=== PATIENT | male | born 1930 | race Caucasian/White ===

== ENCOUNTER 2018-01-05 11:38 | Inpatient (IN) | payer MEDICARE ==
[2018-01-05 11:59] LABS: #Eosinphils 0.2 thou/uL (0.0-0.7); #Lymphocytes 2.7 thou/uL (1.20-3.40); #Monocytes 1.4 thou/uL (0.11-0.59); #Neutrophils 7.7 thou/uL (1.40-6.50); %Basophils 0.4 % (0.0-1.0); %Eosinophils 1.9 % (0.0-10.0); %Lymphocytes 22.6 % (21.0-51.0); %Monocytes 11.4 % (0.0-10.0); %Neutrophils 63.8 % (42.0-75.0); Hemoglobin 13.3 g/dL (14.0-18.0); Mean Corpuscular HGB CONC 33.1 g/dL (32.0-36.0); Mean Platelet Volume 7.7 fL (7.4-10.4); Platelet Count 242 thou/uL (130-400); Red Blood Cell (RBC) Count 3.82 mill/uL (4.70-6.10); White Blood Cell (WBC) Count 12.1 thou/uL (4.8-10.8)
[2018-01-05 12:07] LABS: PTT 27.2 SEC (22.9-36.1); Prothrombin Time 13.4 SEC (12.0-14.7)
[2018-01-05 12:08] LABS: BHCG - Serum Negative; Pregs Control Background? CLEAR/WHITE (CLR/WHITE); Pregs Control Bar Appear? YES (CONTROL BAR)
[2018-01-05 12:14] LABS: ALT (SGPT) 20 U/L (8-55); AST (SGOT) 15 U/L (5-34); Albumin 3.7 g/dL (3.4-4.8); Alkaline Phosphatase 81 U/L (40-150); Anion Gap 13 mmol/L (10-20); BUN (Urea Nitrogen) 15 mg/dL (8.4-25.7); Bilirubin, Total 0.8 mg/dL (0.2-1.2); Calc. Creatinine Clearance 0 mL/min (70-130); Carbon Dioxide 25 mmol/L (23-31); Chloride 103 mmol/L (98-107); Estimated GFR-MDRD 68; Globulin 2.9 g/dL (2.4-3.5); Glucose 228 mg/dL (83-110); Potassium 4.4 mmol/L (3.5-5.1); Protein, Total 6.6 g/dL (5.8-8.1); Sodium 137 mmol/L (136-145)
[2018-01-05 12:18] LABS: CKMB 1.3 ng/mL (0-6.6)
--- NOTE | 2018-01-05 12:28 | CT ---
CT HEAD NONCONTRAST: INDICATIONS: New onset left facial droop. Stroke activation/alert. FINDINGS: There is mild parenchymal volume loss with compensatory dilatation of the ventricular system. Mild c hronic microvascular ischemic disease is present. There is a focal region of hypoattenuation of the right occipital lobe, which may relate to an area of encephalomalacia from prior infarction. No hemo rrhage, mass effect, or midline shift. Mild paranasal sinus mucosal thickening is incidentally noted. IMPRESSION: 1. No acute intracranial hemorrhage or mass effect. 2. Additional findings are detailed above. Telephone call of findings placed to Joaquim Baron M.D., at 1149 hours on 01/05/2018. CODE CR POS: ANNALEE
[2018-01-05 14:05] LABS: Bilirubin Negative (Negative); Blood, Urine Negative (Negative); Clarity CLEAR (Clear); Glucose, Urine (Dipstick) Negative (Negative); Leukocyte Negative (Negative); Nitrite Negative (Negative); Protein, Urine (Dipstick) Negative (Neg-Trace); Specific Gravity, Urine 1.007 (1.002-1.036); Urobilinogen 0.2 mg/dL (0.2-1.0); pH, Urine 5.5 (5.0-9.0)
[2018-01-05] MEDS ORDERED: Enoxaparin Sodium 80 MG/0.8 ML SYRINGE ONE (15:03)
[2018-01-05] MEDS ORDERED: Acetaminophen 325 MG TAB PO PRN (16:22)
[2018-01-05] MEDS ORDERED: Dextrose 5% in Water 1,000 ML IV PRN (16:22)
[2018-01-05] MEDS ORDERED: HumaLOG 300 UNITS/3 ML VIAL SC PRN (16:22)
[2018-01-05] MEDS ORDERED: Mag-Al 1200 mg/1200 mg/30 ML UDCUP PO PRN (16:22)
[2018-01-05] MEDS ORDERED: Dextrose 50% Abboject 50 ML SYRINGE SLOW IVP PRN (16:22)
[2018-01-05 16:29] VITALS: BMI 26.2
[2018-01-05 17:14] LABS: Troponin I 0.047 ng/mL (< 0.028)
[2018-01-05] MEDS: Insulin NPH/Reg Insulin Hm 300 UNITS/3 ML VIAL SC SCH (19:10)
[2018-01-05] MEDS: Docusate 100 MG CAP PO SCH (19:55)
[2018-01-05] MEDS: Famotidine 20 MG TAB PO SCH (19:57)
[2018-01-05] MEDS ORDERED: Atorvastatin Calcium 40 MG TAB PO SCH (21:00)
--- NOTE | 2018-01-05 21:20 | HP ---
PRIMARY CARE PHYSICIAN: Dr. Joan Vaughan. CHIEF COMPLAINT: Right facial droop. HISTORY OF PRESENT ILLNESS: The history of present illness is taken almost entirely from the patient 's family, who were at the bedside as the patient has advanced dementia and is unable to give a histo ry. Mr. Velasco is an 87-year-old gentleman that has a history of advanced dementia as well as diabet es mellitus. He was in his usual state of health until earlier today around 8:30. His daughter noti elijah that the right side of his face seemed more droopy. The corner of his mouth was turned down and he seemed generally weaker than usual. For this reason, they brought him to the ER for evaluation. In the ER, he was determined to have the facial droop and was also noted to be in atrial flutter with a heart rate in the 70s. He is being admitted for further evaluation and treatment. The patient wa s considered for TPA as well as PITO procedure; however, due to his advanced dementia and the minima l symptoms, he was not felt to be a candidate for either. REVIEW OF SYSTEMS: All systems were reviewed with the patient's daughter and seemed to be negative o ther than having an eye infection recently and generally being a bit weaker and recent incontinence t o urine. No other systems were positive. PAST MEDICAL HISTORY: Significant for diabetes mellitus, dementia, and peripheral vascular disease. PAST SURGICAL HISTORY: He has had a right leg vascular surgery. ALLERGIES: No known drug allergies. SOCIAL HISTORY: He is a former smoker. He quit 30 years ago. There is no alcohol use. He is marri ed, has three children. His by the name of Karen Velasco is his medical power of erisa attorney, his granddaughter is the alternate. He needs help with all activities of daily living. CODE STATUS. They said they had never considered this before and therefore he is a FULL CODE. FAMILY HISTORY: Significant for cancer in his father. Sister had breast cancer. CURRENT MEDICATIONS: Include 70/30 insulin 20 units twice a day. PHYSICAL EXAMINATION: GENERAL: He is alert, but disoriented. VITAL SIGNS: Blood pressure was 159/72, heart rate 57, respiratory rate of 18, and temperature was 9 9.5. HEENT: His pupils are equal, round, and reactive. Extraocular muscles are intact. Sclerae are anic teric. Throat no erythema and exudates. He is edentulous. NECK: There is no adenopathy, no bruits. LUNGS: Clear to auscultation, no wheezing, no rales. CARDIOVASCULAR: Heart rate seems regular. There were no murmurs, clicks or rubs. ABDOMEN: Soft, it is nontender, nondistended. Positive for bowel sounds. No rebound or guarding. EXTREMITIES: There is no edema. He did have some discoloration kind of a reddish bronze discolorati on on the dorsum of his right leg as his pulses are diminished on the right and he has a callus forma tion under the plantar aspect of the fifth proximal metatarsal joint. NEUROLOGIC: He has a right facial droop. His muscle strength appears to be intact. Reflexes were s ymmetric. LABORATORY RESULTS: CT scan of the brain was negative except for some chronic changes. Sodium 137, potassium 4.4, chloride is 103, CO2 is 25, BUN of 15, creatinine 1.04, glucose is 228, bilirubin 0.8. Troponin is 0.040. The white blood cell count 12.1, hemoglobin 13.3, hematocrit is 40.3, platelet count is 242. INR is 1.0. Urinalysis was negative. EKG was atrial fibrillation, heart rate was 76- 78 with 4:1 block. ASSESSMENT AND PLAN: 1. This is a pleasant 87-year-old gentleman, who presents to the emergency room with right facial dr oop, which is persistent now since 8:30 this morning. This likely represents a small stroke, likely as a result of the atrial flutter. The atrial flutter is a newly detected and no previous history of this. He will be admitted to the stroke unit, started on low dose aspirin as well as anticoagulatio n with Lovenox. We will check a lipid panel and likely start him on a statin. His blood pressure is actually within a reasonable range at this time. We will consult Neurology. He generally sees Dr. Jacquelyn Morales on a regular basis with regards to his dementia. 2. For the atrial flutter, we will get an echocardiogram, continue the Lovenox and also consult Card iology for further recommendations. 3. Diabetes mellitus. He has passed his bedside swallow. We will place him on a diabetic diet. Re sume his insulin as well as a sliding scale. Also, he appears to have a diabetic ulcer on the planta r aspect of the right foot and we will get a wound care consult for this.
[2018-01-05 21:27] LABS: Troponin I 0.047 ng/mL (< 0.028)
[2018-01-05] MEDS ORDERED: Enoxaparin Sodium 80 MG/0.8 ML SYRINGE SC SCH (23:59)
[2018-01-06] MEDS: Enoxaparin Sodium 80 MG/0.8 ML SYRINGE SC SCH (04:39)
[2018-01-06 06:05] LABS: Anion Gap 14 mmol/L (10-20); BUN (Urea Nitrogen) 15 mg/dL (8.4-25.7); Calc. Creatinine Clearance 69 mL/min (70-130); Carbon Dioxide 24 mmol/L (23-31); Cardiac Risk 3.1 (Less than 4.5); Chloride 105 mmol/L (98-107); Cholesterol 173 mg/dl (< 200 Desired); Estimated GFR-MDRD 78; Glucose 130 mg/dL (83-110); HDL Cholesterol 55 mg/dL (>60 Neg Risk); LDL Cholesterol, Calculated 108 mg/dL; Potassium 4.4 mmol/L (3.5-5.1); Sodium 139 mmol/L (136-145); Triglycerides 52 mg/dL (Less than 150)
[2018-01-06 06:30] LABS: #Eosinphils 0.1 thou/uL (0.0-0.7); #Lymphocytes 1.9 thou/uL (1.20-3.40); #Monocytes 1.1 thou/uL (0.11-0.59); #Neutrophils 7.6 thou/uL (1.40-6.50); %Basophils 0.1 % (0.0-1.0); %Eosinophils 1.1 % (0.0-10.0); %Monocytes 9.9 % (0.0-10.0); %Neutrophils 70.9 % (42.0-75.0); Hemoglobin 13.4 g/dL (14.0-18.0); Mean Corpuscular HGB CONC 33.7 g/dL (32.0-36.0); Mean Corpuscular Hemoglobin 35.3 pg (27.0-31.0); Mean Platelet Volume 8.1 fL (7.4-10.4); Platelet Count 247 thou/uL (130-400); RBC Distribution Width 13.1 % (11.5-14.5); Red Blood Cell (RBC) Count 3.79 mill/uL (4.70-6.10); White Blood Cell (WBC) Count 10.7 thou/uL (4.8-10.8)
[2018-01-06] MEDS: Aspirin 81 mg Enteric Coated Tablet PO SCH (08:54)
[2018-01-06] MEDS: Docusate 100 MG CAP PO SCH (08:54)
[2018-01-06] MEDS: Famotidine 20 MG TAB PO SCH (08:54)
[2018-01-06] MEDS: Insulin NPH/Reg Insulin Hm 300 UNITS/3 ML VIAL SC SCH ×2 (08:55→18:12)
[2018-01-06] MEDS ORDERED: Prevnar 13-Val Conj/PF 0.5 ML SYRINGE IM ONE (09:00)
[2018-01-06] MEDS ORDERED: Lorazepam 2 MG/ML VIAL SLOW IVP SCH (11:00)
[2018-01-06] MEDS: HumaLOG 300 UNITS/3 ML VIAL SC PRN (11:35)
[2018-01-06] MEDS ORDERED: Labetalol HCl 100 MG/20 ML VIAL SLOW IVP PRN (11:44)
--- NOTE | 2018-01-06 12:05 | PDOC.PN ---
- Subjective Encounter Start Date: 01/06/18 Encounter Start Time: 12:04 Mr. Velasco was seen today in follow-up of acute CVA. He is sitting up in a chair eating. He continues to have a right facial droop, but it is less pronounced today than yesterday. - Objective Resuscitation Status: Resuscitation Status FULL:Full Resuscitation MAR Reviewed: Yes Vital Signs & Weight: Vital Signs (12 hours) Temp Pulse Pulse Resp BP BP Pulse Ox 01/06/18 11:25 97.9 F 79 20 162/80 H 97 01/06/18 10:40 76 162/80 H 01/06/18 07:50 100.0 F H 75 18 151/69 H 95 01/06/18 04:00 99.5 F 76 16 197/111 H 93 L Weight Weight 182 lb 12.8 oz I&O: 01/05/18 01/06/18 01/07/18 06:59 06:59 06:59 Intake Total 100 Output Total 325 Balance 100 -325 Result Diagrams: 01/06/18 05:19 01/06/18 05:19 Additional Labs: Accuchecks 01/06/18 01/06/18 01/05/18 10:43 05:49 20:37 POC Glucose 194 H 121 H 252 H 01/05/18 01/05/18 16:50 11:46 POC Glucose 149 H 184 H Phys Exam - Physical Examination HEENT: PERRLA Respiratory: no wheezing, no rales, no rhonchi, clear to auscultation bilateral Cardiovascular: RRR, no significant murmur, no rub Gastrointestinal: soft, non-tender, positive bowel sounds Musculoskeletal: no edema + right facial droop, Muscle strength intact in extremities Dx/Plan (1) Acute CVA (cerebrovascular accident) Code(s): I63.9 - CEREBRAL INFARCTION, UNSPECIFIED Status: Acute (2) Hypertension Code(s): I10 - ESSENTIAL (PRIMARY) HYPERTENSION Status: Acute (3) Dementia Code(s): F03.90 - UNSPECIFIED DEMENTIA WITHOUT BEHAVIORAL DISTURBANCE Status: Chronic (4) Diabetes mellitus type 2 in nonobese Code(s): E11.9 - TYPE 2 DIABETES MELLITUS WITHOUT COMPLICATIONS Status: Chronic - Plan * Acute CVA- he continues to have a right facial droop. await MRI, or repeat CT scan if he is unable to tolerate the MRI * Follow up with Echo, and consider carotid dopplers if recommended by Neurology * Atrial Flutter- his heart rate is controlled, but he is still in Aflutter- await recommendations from Cardiology- and will continue Lovenox * HTN-blood pressure is elevated- with no prior history of hypertension- will start Lisinopril tomorrow * DM- blood glucose is stable * Dyslipidemia- his LDL is not at goal. His family did not want him to take Lipitor- will give a trial of Pravastatin. * Low grade fever- ? etiology- he has some mild dysphagia, and his granddaughter reports that he had esophageal strictures in the past- will check a chest X-ray
[2018-01-06] MEDS ORDERED: Melatonin 3 MG TAB PO PRN (14:59)
--- NOTE | 2018-01-06 17:33 | RAD ---
PORTABLE AP CHEST X-RAY: 01/06/18 HISTORY: Fever, mild dysphagia. COMPARISON: 05/08/10. FINDINGS: The cardiac silhouette and pulmonary vasculature are within normal limits. There is accentuation of t he bronchovascular markings due to shallow depth of inspiration and the portable technique of the sanya dy, but the lungs are otherwise clear. Prominent degenerative changes are seen in the spine. IMPRESSION: No acute cardiopulmonary process. POS: MARILU
[2018-01-07] MEDS: Enoxaparin Sodium 80 MG/0.8 ML SYRINGE SC SCH ×2 (01:06→09:55)
[2018-01-07] MEDS: Docusate 100 MG CAP PO SCH ×3 (01:09→21:43)
[2018-01-07] MEDS: Famotidine 20 MG TAB PO SCH ×3 (01:10→21:43)
[2018-01-07] MEDS: Simvastatin 5 MG TAB PO SCH ×2 (01:10→21:43)
[2018-01-07] MEDS: Insulin NPH/Reg Insulin Hm 300 UNITS/3 ML VIAL SC SCH ×2 (08:37→17:57)
[2018-01-07] MEDS: Lisinopril 5 MG TAB PO SCH (08:38)
[2018-01-07] MEDS: Aspirin 81 mg Enteric Coated Tablet PO SCH (08:38)
--- NOTE | 2018-01-07 11:37 | PDOC.PN ---
- Subjective Encounter Start Date: 01/07/18 Encounter Start Time: 11:34 Mr. Velasco was seen today in follow-up of Acute CVA. He is at his baseline confusion. There has been no significant change overnight. - Objective Resuscitation Status: Resuscitation Status FULL:Full Resuscitation MAR Reviewed: Yes Vital Signs & Weight: Vital Signs (12 hours) Temp Pulse Resp BP BP Pulse Ox 01/07/18 08:38 82 181/87 H 01/07/18 07:42 98.2 F 82 20 181/87 H 97 01/07/18 07:12 98.2 F 81 17 96 01/07/18 04:00 97.8 F 79 16 156/78 H 96 01/07/18 01:20 98.8 F 80 16 97 01/07/18 00:00 98.8 F 80 16 151/71 H 97 Weight Admit Weight 182 lb 12.8 oz Weight 182 lb 12.8 oz I&O: 01/06/18 01/07/18 01/08/18 06:59 06:59 06:59 Intake Total 100 500 Output Total 325 Balance 100 175 Result Diagrams: 01/06/18 05:19 01/06/18 05:19 Additional Labs: Accuchecks 01/07/18 01/07/18 01/06/18 10:47 05:32 21:18 POC Glucose 111 H 98 122 H 01/06/18 16:54 POC Glucose 121 H Phys Exam - Physical Examination HEENT: PERRLA Respiratory: no wheezing, no rales, no rhonchi, clear to auscultation bilateral Cardiovascular: no significant murmur, no rub, irregular Gastrointestinal: soft, non-tender, positive bowel sounds Musculoskeletal: no edema Dx/Plan (1) Acute CVA (cerebrovascular accident) Code(s): I63.9 - CEREBRAL INFARCTION, UNSPECIFIED Status: Acute (2) Hypertension Code(s): I10 - ESSENTIAL (PRIMARY) HYPERTENSION Status: Acute (3) Dementia Code(s): F03.90 - UNSPECIFIED DEMENTIA WITHOUT BEHAVIORAL DISTURBANCE Status: Chronic (4) Diabetes mellitus type 2 in nonobese Code(s): E11.9 - TYPE 2 DIABETES MELLITUS WITHOUT COMPLICATIONS Status: Chronic - Plan * Acute CVA- the patient was unable to undergo the MRI * Will check carotid doppler as recommended by Neurologist * Atrial Flutter- he continues in the rhythm - his heart rate is stable- await Cardiology recommendations * Continue Lovenox for now * HTN- will start Lisinopril * Dementia- he has advanced dementia, and this may complicate his treatment for Atrial Flutter .
--- NOTE | 2018-01-07 13:27 | CON ---
DATE OF CONSULTATION: 01/07/2018 CONSULTING PHYSICIAN: Hospital service. IMPRESSION: 1. Possible mild stroke with right facial droop. 2. Moderately severe dementia. 3. Hypertension. 4. Diabetes. PLAN: 1. Aspirin 81 mg per day. 2. Carotid ultrasound. 3. Patient can be discharged home for care under the family's guidance. Mr. Velasco is an 87-year-old gentleman who is a patient of Dr. Morales's. He has a history of fairly se rios dementia, requires assistance in most of his activities of daily living. They noticed some righ t facial drooping, decided to bring him to the hospital. His CT scan of the brain showed some chroni c small vessel ischemic changes. His echocardiogram shows normal ejection fraction around 55%. His gait has not changed. I have not seen any other changes in his ability to function. Otherwise, ther e is no other past medical history of stroke. PHYSICAL EXAMINATION: He was alert and cooperative. His speech was clear, but limited content. He followed simple commands reasonably well. There is very subtle right facial droop. He had coarse tr emor in both hands with diminished rapid alternating movements bilaterally. He could walk independen tly, although once bit unsteady and stooped in his posture. No other focal deficits were noted. LABORATORY STUDIES: Including CBC, coags, chemistry panel and urinalysis were unremarkable. The pat ient was uncooperative for the MRI. SUMMARY: This is an elderly gentleman with fairly significant dementia with a subtle facial droop mendenhall ggesting a minor stroke. We would start him on aspirin and we will have him follow up as needed with Dr. Morales.
--- NOTE | 2018-01-07 13:29 | ULT ---
BILATERAL CAROTID DUPLEX ULTRASOUND: HISTORY: CVA. TECHNIQUE: Nielsen scale ultrasound with color flow and spectral Doppler imaging of the extracranial carotid artery systems was performed bilaterally. FINDINGS: There is plaque formation on either side. The peak systolic velocity in the right ICA measures 82 cm/s with an end-diastolic velocity of 10 cm/ s and a systolic ratio of 1.1. The peak systolic velocity in the left ICA measures 147 cm/s with an end-diastolic velocity of 11 cm/ s and a systolic ratio os 1.5. Flow in both vertebral arteries remains antegrade. IMPRESSION: Moderate (50-69%) stenosis involving the left internal carotid artery. POS: MARILU
[2018-01-07] MEDS: HumaLOG 300 UNITS/3 ML VIAL SC PRN (16:48)
[2018-01-07] MEDS: Ketotifen Fumarate 0.025% Ophth Soln 5 ml Bottle EA EYE SCH (21:43)
[2018-01-08] MEDS: Enoxaparin Sodium 80 MG/0.8 ML SYRINGE SC SCH (00:23)
--- NOTE | 2018-01-08 02:32 | CON ---
DATE OF CONSULTATION: 01/07/2018 HISTORY OF PRESENT ILLNESS: Agus Velasco is an 87-year-old white male with advanced dementia and h istory was provided by his and daughter. He was noticed by them to have a right facial droop an d he was somewhat weaker than usual. He was then brought to the emergency room on 01/05/2018 and the re was no specific finding on head of the stroke. He was found to be in atrial flutter with controll ed rate of around 70 per minute, although since he has been admitted on the monitor, he does have slo wer rates at times. He apparently has never had any cardiac arrhythmias in the past. They state francois t whenever they take his blood pressure at home, his heart rate is usually in the 50s. When he was a dmitted, there was discussion regarding possible TPA or PITO procedure; however, due to his advanced dementia and minimal symptoms, the decision was made not to be a candidate for either. PAST MEDICAL HISTORY: Diabetes, dementia, peripheral vascular disease. OPERATIONS: Right leg vascular bypass. MEDICATIONS: NPH insulin 20 units b.i.d., temazepam 30 mg at bedtime p.r.n. ALLERGIES: None. SOCIAL HISTORY: He stopped smoking 30 years ago. He does not drink. He needs help with all activit ies of daily living. He had a fall in the bathroom approximately 1 month ago. FAMILY HISTORY: Unremarkable. REVIEW OF SYSTEMS: Unobtainable due to the patient's dementia. PHYSICAL EXAMINATION: VITAL SIGNS: Blood pressure 137/75, pulse 78. HEENT: PERRL. NECK: Supple. CHEST: Clear. CARDIAC: S1, S2 normal, without any S3, S4, or murmurs. ABDOMEN: Normal bowel sounds, without tenderness, organomegaly. EXTREMITIES: Revealed no clubbing, cyanosis or edema. He does have stasis changes in the lower righ t leg. NEUROLOGIC: The patient moves all extremities. Does not talk much and does have a mild right facial droop. LABORATORY AND X-RAY FINDINGS: CT scan revealed chronic changes. There is no EKG on the chart, one will be ordered. Rhythm strips show atrial flutter at times with slow response. Echocardiogram reve aled ejection fraction of 55%-60% with apical dyskinesis, mild mitral regurgitation, aortic valvular sclerosis and mild tricuspid regurgitation. Hemoglobin 13.4, hematocrit 39.7, white count 10,700, pl atelets 247,000. INR 1.0. Sodium 139, potassium 4.4, chloride 105, carbon dioxide 24, BUN 15, creat inine 0.92. Cholesterol 173, triglycerides 52, HDL 55, LDL 108. IMPRESSION: 1. Probable mild stroke with right facial droop. 2. Atrial flutter of uncertain duration. He has been treated with therapeutic Lovenox since admissi on. 3. Diabetes. 4. Hypercholesterolemia in a diabetic. 5. Moderate dementia. RECOMMENDATIONS: Options were discussed with patient's and his daughter. These include no ther apy since he does not appear to have fast ventricular rate. Other option would be to add anticoagula tion to try to prevent other potential embolic events; however, he is moderately demented and had a f all one month ago. The other option would be to undergo radiofrequency ablation and then anticoagula tion for a month and then discontinue anticoagulation. Electrophysiology will be consulted. PLAN: The patient will be kept n.p.o. decision is to proceed with radiofrequency ablation.
[2018-01-08 05:39] LABS: Hemoglobin 12.1 g/dL (14.0-18.0); Platelet Count 215 thou/uL (130-400)
[2018-01-08 07:40] VITALS: TEMP 98.4
[2018-01-08] MEDS: Ketotifen Fumarate 0.025% Ophth Soln 5 ml Bottle EA EYE SCH (08:58)
[2018-01-08] MEDS: Insulin NPH/Reg Insulin Hm 300 UNITS/3 ML VIAL SC SCH (09:02)
[2018-01-08] MEDS: Aspirin 81 mg Enteric Coated Tablet PO SCH (09:02)
[2018-01-08] MEDS: Docusate 100 MG CAP PO SCH (09:02)
[2018-01-08] MEDS: Lisinopril 5 MG TAB PO SCH (09:03)
[2018-01-08] MEDS: Famotidine 20 MG TAB PO SCH (09:03)
[2018-01-08 15:49] VITALS: BP 123/67
--- NOTE | 2018-01-08 20:03 | CON ---
DATE OF CONSULTATION: 01/08/2018 REFERRING PHYSICIAN: Qasim Christiansen M.D. REASON FOR CONSULTATION: Atrial flutter. HISTORY OF PRESENT ILLNESS: Mr. Velasco is an 87-year-old male with advanced dementia, who presented to the emergency room when his family saw that he was having weakness as well as right-side d facial droop. There is no specific finding on head CT indicating stroke, but he was found to be in atrial flutter with controlled ventricular rate approximately 70 beats per minute. He has been eval uated by Neurology as well as Cardiology. EP is now consulted for the atrial flutter. His family ac ts as a historian and patient does have advanced dementia, moves around at home, but largely is unabl e to relate how he is feeling or what is bothering him if anything. They are unaware of any prior ab normal rhythms or arrhythmia issues. He has not had any prior stroke or stroke like symptoms other t collins the right-sided facial droop, that made them seek emergency evaluation. He occasionally has fall s at home, but does not fall frequently. Review of systems was attempted as best possible, but as me ntioned, this is all secondhand opinion based on family and family at bedside. They did not feel he has been having any chest pain, general pain, dizziness or passing out episodes. REVIEW OF SYSTEMS: As per HPI. PAST MEDICAL HISTORY: 1. Advanced dementia. 2. Diabetes. 3. Peripheral vascular disease. OPERATIONS: Right leg vascular bypass. ALLERGIES: No known drug allergies. HOME MEDICATIONS: Include NPH insulin 20 units b.i.d., temazepam 30 mg at bedtime as needed. SOCIAL HISTORY: Negative for tobacco, alcohol or illicit drug use. Quit smoking 30 years past. Lizzette es with his family, fell approximately 1 month ago. FAMILY HISTORY: Negative for sudden cardiac or early onset coronary artery disease to the best of their knowledge: PHYSICAL EXAMINATION: VITAL SIGNS: Most recent vital signs include temperature 98.4, heart rate 79, oxygen is 96% on room air with respirations 16 per minute, blood pressure is 115/74. GENERAL: This is an elderly, well-nourished male, in no apparent distress. He is sleeping and resti ng comfortably in bed throughout the exam. HEENT: He is normocephalic, atraumatic. Sclerae are anicteric. NECK: Supple without jugular venous distention. LUNGS: Clear to auscultation bilaterally. Respirations are even and unlabored with good bilateral e xcursion. CARDIOVASCULAR: His heart rate is irregularly irregular. PMI is nondisplaced. EXTREMITIES: His extremities are warm and dry to touch without clubbing, cyanosis or edema. ABDOMEN: Soft, nontender without palpable masses and hepatojugular reflux is negative. NEUROLOGIC: Limited with his dementia and being very sleepy right now. He does have mild residual r ight-sided facial droop on exam, though no additional focal findings and his gait was not assessed. DATABASE: Review of EKG and telemetry reveals what is likely a CTI dependent typical flutter with a controlled ventricular rate. Occasionally, bradycardic while sleeping with ventricular rates into th e 30s though usually 50-70 while awake. LABORATORY DATA: WBC 12.1, hemoglobin 12.1 also, hematocrit 36.4, platelet count is 215. Chemistry: Creatinine 0.97, potassium 4.4. Echocardiogram revealed an ejection fraction of 55% to 60% with ap ical dyskinesis, mild mitral regurgitation, aortic valvular sclerosis as well as some mild tricuspid regurgitation. IMPRESSION: 1. Typical likely CTI dependent atrial flutter with controlled ventricular rate, occasional asymptom atic pauses. 2. Subacute cerebrovascular accident with right-sided facial droop. 3. Normal left ventricular ejection fraction 55% to 60%. 4. Advanced dementia. 5. Frequent falls. PLAN: We discussed atrial flutter and possible treatment options including medical management as wel l as ablation. In the setting of a subacute CVA, we would recommend holding off on ablation and allo wing for recovery with a stroke and plan to do an outpatient ALANIS and ablation in approximately 1 jaqueline h. Oral anticoagulation is indicated and we recommend Eliquis 5 mg b.i.d. once this is deemed approp riate by Neurology. I have reached out to a neurologist who is consulted and we will confer with the m before making the final determination about oral anticoagulation. Ideally, this will just be short term requirement to be continued for at least 30 days post-ablation unless left-sided atrial circuit s are seen as well at time of EP study and ablation. In the meantime, we recommend continuing to mon itor for bradycardic symptoms and we will continue to evaluate him as an outpatient. Thank you for allowing us to participate in the care of this patient. All questions have been answer ed. The family voices understanding and agrees with this plan of care.
--- NOTE | 2018-01-09 00:47 | DIS ---
DATE OF ADMISSION: 01/05/2018 DATE OF DISCHARGE: 01/08/2018 PRIMARY CARE PHYSICIAN: Joan Vaughan MD DISCHARGE DISPOSITION: Home. PRIMARY DISCHARGE DIAGNOSES: 1. Cerebrovascular accident. 2. Atrial flutter. 3. Advanced dementia. 4. Diabetes mellitus, type 2. 5. History of peripheral vascular disease. DISCHARGE MEDICATIONS: Include Eliquis 5 mg twice a day, aspirin 81 mg daily, Zestril 5 mg daily, si mvastatin 10 mg at bedtime, Patanol eyedrops twice a day, and Novolin 70/30 20 units twice a day. PROCEDURES DONE DURING ADMISSION: The patient had a CT scan of the brain, this was negative for any acute intracranial hemorrhage or mass effect. An MRI was attempted, but due to the patient's advance d dementia, he could not lay still to have this done. The patient also had an echocardiogram in [facility] the ejection fraction was estimated at 55-60%. There was dyskinetic motion of the apical wall note d in the left ventricle. The aortic valve was sclerotic. There was some mitral or mild tricuspid re gurgitation. The patient had bilateral carotid Dopplers in which there was moderate 50-69% stenosis involving the left internal carotid artery. CODE STATUS: FULL CODE. ALLERGIES: No known drug allergies. HOSPITAL COURSE: Mr. Velasco is a pleasant 87-year-old gentleman who presented to the emergency room with the onset of a right facial droop and some generalized weakness. He was brought to the emergenc y room and he was found to be in atrial flutter. His heart rate was in the 70s. He was admitted for presumed stroke, likely as a result of the atrial flutter. An MRI was attempted, but due to the pat ient's advanced dementia, he was not able to undergo the MRI. It is presumed he likely had a stroke. He was seen by both Neurology and Cardiology during his hospital stay. Discussions were made regar ding the treatment of the atrial flutter. Due to the patient's advanced dementia, several options we re given to the family, the option of no treatment at all given the patient's atrial flutter, the hea rt rate was in the 70s, there was a controlled rate versus ablation. The patient's family decided on more aggressive approach and an materials development engineer was consulted. It was recommended that he event ually undergo ablation; however, he would need to be on anticoagulation first for about a month and t he hope would be to undergo the ablation in a month. Hopefully, he would be rendered into a sinus [facility], at which time, the anticoagulation could be stopped. The patient was subsequently discharged [facility] [place] on 01/08/2018 to have close followup with Dr. Royal in outpatient setting and also with his primar care physician.
== END 2018-01-08 16:48 | disposition home or self-care (01) | DRG 65 ==
LOC: ERS 11:38 → 2SE 14:05
PROVIDERS: ADMIT Internal Medicine; ATTEND Internal Medicine
DX: I63.9 Cerebral infarction, unspecified (principal); I48.92 Unspecified atrial flutter; I10 Essential (primary) hypertension; F03.90 Unspecified dementia, unspecified severity, without behavioral disturbance, psychotic disturbance, mood disturbance, and anxiety; R29.810 Facial weakness; E78.5 Hyperlipidemia, unspecified; R13.10 Dysphagia, unspecified; Z87.891 Personal history of nicotine dependence; E11.621 Type 2 diabetes mellitus with foot ulcer; Z91.81 History of falling; E78.00 Pure hypercholesterolemia, unspecified; L97.519 Non-pressure chronic ulcer of other part of right foot with unspecified severity; R29.703 NIHSS score 3
CPT/HCPCS: 36415; 36416; 70450; 71045; 80048; 80053; 80061; 81003; 82553; 82565; 84484; 84703; 85014; 85018; 85025; 85049; 85610; 85730; 93005; 93306; 93880; 96372; G8978-GP-CK; G8979-GP-CI; G8987-GO-CK; G8988-GO-CI; G8996-GN-CI; G8997-GN-CI; J1650; J2060